=== PATIENT | male | born 1945 | race American Indian/Alaskan Native ===

== ENCOUNTER 2016-04-17 12:28 | Emergency (ER) | payer MEDICARE ==
[2016-04-17 13:29] VITALS: BP 134/92
[2016-04-17] MEDS ORDERED: NORCO 5/325 PO ONE (18:17)
--- NOTE | 2016-04-17 20:24 | Emergency Department Report ---
ED Lower Extremity HPI - General Chief Complaint: Extremity Injury, Lower Stated Complaint: LT FOOT SWOLLEN Time Seen by Provider: 04/17/16 18:10 Source: patient Mode of arrival: Wheelchair Limitations: No Limitations - History of Present Illness Initial Comments: 70-year-old male past medical history diabetes hypertension presents with complaint of left hip pain left knee pain left thigh pain status post mechanical fall, slipped on ice approximately 3 days ago. States he has had significant difficulty walking and ambulating since the fall. Patient has been helped by his to walk around at home and claims that he was using a chair to stabilize himself over the last 3 days. On initial clinical exam patient awake alert and oriented 3 denies any lacerations denies any head or neck trauma states that he fell onto left hip slipping on ice outside of his home on street. Brought in by wheelchair. Complaint: hip injury, knee injury, leg injury Injury: Hip: Left, Pelvis: Left, Knee: Left Type of Injury: other Severity: moderate Severity scale (0 -10): 6 Improves With: NSAID Worsens With: weight bearing Context: fall (fell onto left knee outside his house on icy street) Associated Symptoms: snap/pop sensation, swelling, able to partially bear weight Treatments Prior to Arrival: cold therapy, NSAIDS - Related Data Home Medications Medication Instructions Recorded Confirmed Last Taken Metformin HCl [Fortamet ER] 1,000 mg PO BID 10/27/13 10/27/13 Unknown amLODIPine [Norvasc] 5 mg PO DAILY 10/27/13 10/27/13 Unknown Previous Rx's Medication Instructions Recorded Last Taken Type HYDROcodone/APAP 10-325 [[place] 1 each PO Q6HR PRN #30 tablet 10/28/13 Unknown Rx 10/325] HYDROcodone/APAP 5-325 [[place] 1 each PO Q8H PRN #15 tablet 04/17/16 Unknown Rx 5/325] Allergies Allergy/AdvReac Type Severity Reaction Status Date / Time No Known Allergies Allergy Unverified 10/27/13 22:23 ED Review of Systems ROS: Stated complaint: LT FOOT SWOLLEN Other details as noted in HPI ED Past Medical Hx - Past Medical History Previous Medical History?: Yes Hx Hypertension: Yes Hx Diabetes: Yes - Surgical History Past Surgical History?: Yes Additional Surgical History: neck and left knee surgery - Social History Smoking Status: Never Smoker Substance Use Type: Alcohol - Medications Home Medications: Home Medications Medication Instructions Recorded Confirmed Last Taken Type Metformin HCl [Fortamet ER] 1,000 mg PO BID 10/27/13 10/27/13 Unknown History amLODIPine [Norvasc] 5 mg PO DAILY 10/27/13 10/27/13 Unknown History HYDROcodone/APAP 10-325 [[place] 1 each PO Q6HR PRN #30 tablet 10/28/13 Unknown Rx 10/325] HYDROcodone/APAP 5-325 [[place] 1 each PO Q8H PRN #15 tablet 04/17/16 Unknown Rx 5/325] ED Physical Exam - General Limitations: No Limitations General appearance: alert, in no apparent distress - Head Head exam: Present: atraumatic, normocephalic - Eye Eye exam: Present: normal appearance, PERRL, EOMI - ENT ENT exam: Present: mucous membranes moist - Neck Neck exam: Present: normal inspection - Respiratory Respiratory exam: Present: normal lung sounds bilaterally. Absent: respiratory distress - Cardiovascular Cardiovascular Exam: Present: regular rate, normal rhythm. Absent: systolic murmur, diastolic murmur, rubs, gallop - GI/Abdominal GI/Abdominal exam: Present: soft, normal bowel sounds - Rectal Rectal exam: Present: deferred - Extremities Exam Extremities exam: Present: normal inspection, tenderness, other (distal dorsalis pedis posterior tibial pulses fully intact) - Expanded Lower Extremity Exam Left Hip exam: Present: normal inspection, full ROM Upper Leg exam: Present: normal inspection, full ROM Knee exam: Present: normal inspection, tenderness (and has pain on palpation lateral aspect knee, no lacerations, posterior and anterior drawer test negative , various tests positive, minor pain on valgus test), swelling Lower Leg exam: Present: normal inspection, full ROM, tenderness (pain lateral to the tibial tuberosity) Ankle exam: Present: normal inspection, full ROM Foot/Toe exam: Present: normal inspection, full ROM Neuro vascular tendon exam: Present: no vascular compromise Gait: Positive: observed and limited by pain (antalgic gait, pain in left knee) - Back Exam Back exam: Present: normal inspection - Neurological Exam Neurological exam: Present: alert, oriented X3, CN II-XII intact, normal gait - Psychiatric Psychiatric exam: Present: normal affect, normal mood - Skin Skin exam: Present: warm, dry, intact, normal color. Absent: rash ED Course Vital Signs 04/17/16 04/17/16 13:27 18:27 Temperature 98.1 F Pulse Rate 108 H Respiratory 16 20 Rate Blood Pressure 134/92 O2 Sat by Pulse 97 Oximetry ED Lower Extremity MDM - Medical Decision Making A/P: Tibial plateau fracture left knee, hip sprain, osteoarthritis, mechanical fall 1-I discussed with Dr. Aguilar 2-I discussed case with Dr. Rodriguez from orthopedic surgery, states that as tibial plateau fracture is nondisplaced treatment and management is knee immobilizer nonweightbearing or weight-bearing as tolerated, no acute surgical intervention. States he will see patient this in his office I will give referral 3-[place] for pain when necessary, RICE therapy left knee/leg. Pt placed in knee immobilizer. I advised patient to rest his left knee and only walk at home minimally. I also advised him to not stay sedentary all the time he should get up periodically throughout the day and walk around with his walker as tolerated. I provided patient with an orthopedic walker. 4-I advised patient that it is imperative to follow-up with orthopedics this week as he has nondisplaced tibial plateau fracture and if he does not and may result in permanent impairment or disability due to fracture in his left knee Critical care attestation.: If time is entered above; I have spent that time in minutes in the direct care of this critically ill patient, excluding procedure time. 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 Jain orthopedic surgery I spoke to Dr. Jain regarding his case, Prescriptions: HYDROcodone/APAP 5-325 [[place] 5/325] 1 each PO Q8H PRN #15 tablet PRN Reason: Pain Referrals: PRIMARY CARE, [Primary Care Provider] - 3-5 Days CHARLY JAIN MD [Staff Physician] - 3-5 Days TESSIE SPRINGER MD [Staff Physician] - 3-5 Days Forms: Work/School Release Form(ED), Accompanied Note Time of Disposition: 22:01
--- NOTE | 2016-04-17 20:51 | XRay Report ---
FINAL REPORT EXAM: XR KNEE 3V LT HISTORY: LEFT KNEE PAIN TECHNIQUE: Left knee three views PRIORS: None. FINDINGS: There is marked tricompartmental joint space narrowing with prominent marginal osteophytes. On AP view there is a vertical linear opacity mid to medial aspect of the tibial plateau. On lateral view there is linear opacity seen posterior through the tibial plateau which extends to the articular surface. No evidence for joint effusion noted is a mixed sclerotic bony density within the distal femur likely reflecting old bone infarct or enchondroma. IMPRESSION: Findings are most consistent with a nondisplaced tibial plateau fracture. Severe tricompartmental degenerative changes Sclerotic opacity within the distal femur most likely reflecting old bone infarct or enchondroma.
--- NOTE | 2016-04-17 20:52 | XRay Report ---
FINAL REPORT EXAM: XR TIBIA FIBULA 2V LT HISTORY: pain s/p fall ? fracture TECHNIQUE: Three views of the left knee PRIORS: None. FINDINGS: Again noted is linear opacity within the tibial plateau suspicious for nondisplaced fracture Marked degenerative change noted at the knee. No distal tibia or fibular fracture is identified. IMPRESSION: Findings are suspicious for nondisplaced fracture of the tibial plateau Marked degenerative change of the knee No additional acute findings
--- NOTE | 2016-04-17 20:54 | XRay Report ---
FINAL REPORT EXAM: XR HIP 2-3V LT HISTORY: s/p fall ? fracture TECHNIQUE: Left hip and AP pelvis PRIORS: None. FINDINGS: No fracture identified. No dislocation seen. Femoral head maintains a normal contour. Joint spaces within normal limits. Adjacent bony pelvis is unremarkable IMPRESSION: Negative hip series
--- NOTE | 2016-04-17 20:55 | XRay Report ---
FINAL REPORT EXAM: XR FEMUR 2 LT HISTORY: s/p fall ? fracture TECHNIQUE: Left knee three views PRIORS: Correlated with today's multiple additional exams FINDINGS: Findings most consistent with a nondisplaced fracture posterior aspect of the tibial plateau further described on today's knee series. Marked degenerative changes at the knee noted along with old bone infarct versus enchondroma. No additional acute findings. IMPRESSION: No findings size suspicious for nondisplaced fracture of the posterior tibial plateau. Marked degenerative changes of the knee No additional acute findings
== END 2016-04-17 22:05 | disposition home or self-care (01) ==
LOC: ED 12:28
DX: S82.142A Displaced bicondylar fracture of left tibia, initial encounter for closed fracture (principal); S73.102A Unspecified sprain of left hip, initial encounter; M15.3 Secondary multiple arthritis; I10 Essential (primary) hypertension; E11.9 Type 2 diabetes mellitus without complications; W19.XXXA Unspecified fall, initial encounter; Y93.89 Activity, other specified; Y99.8 Other external cause status; Y92.89 Other specified places as the place of occurrence of the external cause

== ENCOUNTER 2018-05-21 05:54 | Day surgery (SDC) | payer MEDICARE, OTHER ==
[2018-05-21] MEDS ORDERED: WATER FOR IRRIG STERILE ONE (07:43)
[2018-05-21] MEDS ORDERED: WATER FOR IRRIG STERILE IR ONE (07:43)
--- NOTE | 2018-05-21 07:51 | Anesthesia Consultation ---
Anesthesia Consult and Med Hx Date of service: 05/21/18 - Airway Anesthetic Teeth Evaluation: Poor (missing upper and lower teeth) ROM Head & Neck: Adequate Mental/Hyoid Distance: Adequate Mallampati Class: Class I Intubation Access Assessment: Good - Pre-Operative Health Status ASA Pre-Surgery Classification: ASA2 Proposed Anesthetic Plan: MAC - Pulmonary Hx Smoking: Yes (STOPPED 2006 , 1 PACK PER WEEK) Hx Sleep Apnea: No (JEAN PRE SCREEN HIGH RISK) - Cardiovascular System Hx Hypertension: Yes Hx Coronary Artery Disease: Yes (cholesterol) - Central Nervous System Hx Neuromuscular Disorder: Yes (has had ACF and some sort of knee surgery) Hx Psychiatric Problems: No - Endocrine Hx Renal Disease: No (hx BPH) Hx Non-Insulin Dependent Diabetes: Yes ( takes metformin and glipizide) - Other Systems Hx Cancer: No
--- NOTE | 2018-05-21 07:51 | Anesthesia Day of Surgery ---
Anesthesia Day of Surgery - Day of Surgery Patient Examined: Yes Patient H&P Reviewed: Yes Patient is NPO: Yes
[2018-05-21] MEDS ORDERED: NACL 0.9% 1000 ML 1,000 ML IV SCH (08:00)
[2018-05-21] MEDS ORDERED: DIPRIVAN 10 MG/ML IV ONE ×4 (08:04→09:33)
[2018-05-21] MEDS ORDERED: XYLOCAINE 2% INFILTRATI ONE (08:04)
--- NOTE | 2018-05-21 08:06 | Short Stay Summary ---
Short Stay Documentation Date of service: 05/21/18 Narrative H&P: Presents for screening colonoscopy. - History Past Medical History: diabetes, hypertension - Allergies and Medications Current Medications: Allergies No Known Allergies Allergy (Verified 05/31/16 15:35) Home Medications Medication Instructions Recorded Confirmed Last Taken Type Metformin HCl [Fortamet ER] 1,000 mg PO BID 10/27/13 05/21/18 05/20/18 History amLODIPine [Norvasc] 5 mg PO DAILY 10/27/13 05/21/18 05/20/18 History Lovastatin [Altoprev] 20 mg PO QHS 05/31/16 05/20/18 06/06/16 21:00 History glipiZIDE [Glucotrol] 10 mg PO BID 05/31/16 05/20/18 06/07/16 04:30 History Jardiance 1 tab PO DAILY 05/20/18 05/21/18 05/20/18 History Lisinopril 1 tab PO DAILY 05/20/18 05/21/18 05/20/18 History Metoprolol Tartrate 1 tab PO DAILY 05/20/18 05/21/18 05/20/18 History Active Medications Sodium Chloride (Nacl 0.9% 1000 Ml) 1,000 mls @ 50 mls/hr IV DIRECT NORMAN Last Admin: 05/21/18 07:58 Dose: 50 mls/hr Documented by: - Physical exam General appearance: no acute distress HEENT: Atraumatic Lungs: Clear to auscultation Heart: Regular rate Gastrointestinal: normal Extremities: no ischemia Short Stay Discharge Plan Follow up with: TESSIE SPRINGER MD [Primary Care Provider] - 7 Days
[2018-05-21] MEDS ORDERED: NORMODYNE IV ONE (08:14)
[2018-05-21 10:16] VITALS: BP 174/102
--- NOTE | 2018-05-21 10:18 | Post Anesthesia Evaluation ---
- Post Anesthesia Evaluation Patient Participated: Yes (sleeping) Airway Patent: Yes Stable Respiratory Function: Yes Nausea/Vomiting: No Temp > 96.8F: Yes Pain Manageable: Yes Adequeate Hydration: Yes Anesthesia Complications: No Block Receding Appropriately: Not Applicable Patient on Ventilator: No
== END 2018-05-21 05:55 | disposition home or self-care (01) ==
LOC: GIO 05:54
PROVIDERS: ATTEND Internal Medicine Gastroenterology
DX: Z12.11 Encounter for screening for malignant neoplasm of colon (principal); D12.3 Benign neoplasm of transverse colon; D3A.8 Other benign neuroendocrine tumors; D12.4 Benign neoplasm of descending colon; D12.7 Benign neoplasm of rectosigmoid junction; K57.30 Diverticulosis of large intestine without perforation or abscess without bleeding; K64.8 Other hemorrhoids; I10 Essential (primary) hypertension; E11.9 Type 2 diabetes mellitus without complications; E78.5 Hyperlipidemia, unspecified; M17.12 Unilateral primary osteoarthritis, left knee; I25.10 Atherosclerotic heart disease of native coronary artery without angina pectoris; E78.00 Pure hypercholesterolemia, unspecified; Z79.01 Long term (current) use of anticoagulants; Z79.899 Other long term (current) drug therapy; Z79.84 Long term (current) use of oral hypoglycemic drugs; Z87.891 Personal history of nicotine dependence; Z96.659 Presence of unspecified artificial knee joint
CPT/HCPCS: 45380; 45381; 45385; 82962; 88305; 88342; J2704; J7030; 88341

== ENCOUNTER 2019-04-11 20:06 | Emergency (ER) | payer MEDICARE ==
[2019-04-11 20:55] VITALS: BP 148/99
--- NOTE | 2019-04-11 20:58 | Event Note ---
ED Screening Note Date of service: 04/11/19 Time: 20:57 ED Screening Note: 73 y o male preseents with table saw injury to right pinky tet; not up to date This initial assessment/diagnostic orders/clinical plan/treatment(s) is/are subject to change based on patients health status, clinical progression and re- assessment by fellow clinical providers in the ED. Further treatment and workup at subsequent clinical providers discretion. Patient/guardian urged not to elope from the ED as their condition may be serious if not clinically assessed and managed. Initial orders include: xray finger tet booster acc eval
--- NOTE | 2019-04-11 21:38 | XRay Report ---
RIGHT FINGER(S) 3 VIEW(S) INDICATION / CLINICAL INFORMATION: pain/injury COMPARISON: None available. FINDINGS: Acute, open, comminuted fracture of the distal phalanx of the small finger with associated deep soft tissue laceration and embedded gas. There are small bone fragments but no embedded metallic foreign b tigre. Overlying bandage material is noted. There is mild soft tissue swelling at the distal end of the finger. 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 No significant arthritis. Signer Name: Jaylon Shannon MD Signed: 04/11/2019 9:33 PM Workstation Name: [id number]
[2019-04-12] MEDS ORDERED: ceFAZolin 1 GM VIAL IM ONE (01:12)
[2019-04-12] MEDS ORDERED: ONDANSETRON 4 MG ODT TAB PO ONE (01:12)
[2019-04-12] MEDS ORDERED: TETANUS,DIPH,PERTUSS(ACELL) VACCINE 0.5 ML SYRINGE IM ONE (01:12)
[2019-04-12] MEDS ORDERED: HYDROcodone/ACETAMINOPHEN 7.5-325MG TAB PO ONE (01:12)
[2019-04-12] MEDS ORDERED: LIDOCAINE-MPF (1%) 10 MG/1 ML VIAL 5 ML INFILTRATI ONE (01:13)
[2019-04-12] MEDS ORDERED: LET TOPICAL (LIDOCAINE/EPINEPHRINE/TETRACAINE) 3 ML TP ONE (02:12)
[2019-04-12] MEDS ORDERED: NEOMY 3.5 MG/BACIT 400 UNITS/POLY B 5000 UNITS/GM OINT PACKET TP ONE (03:05)
--- NOTE | 2019-04-12 03:31 | Emergency Department Report ---
ED Upper Extremity Inj HPI - General Chief Complaint: Wound/Laceration Stated Complaint: RIGHT HAND LACERATION Source: patient Mode of arrival: Ambulatory Limitations: No Limitations - History of Present Illness Initial Comments: Patient is a 73-year-old -[place] male with a history of hypertension, [id number] diabetes who presents to the ED with painful bleeding D cell right small finger laceration after a chain-saw the distal part of his right small finger for 4 hours ago while walking with the chainsaw at home. Patient states that the pain has worsened in the last 2 hours and that the bleeding has not been well controlled. Patient also states that he is not up-to-date with his tetanus vaccinations. Patient denies numbness or tingling or weakness of the right index small finger. MD Complaint: Injury to:: right, finger (small finger injury and laceration) -: Sudden, hour(s) (4) Other Extremity Injury: Hand: Right (distal right small finger laceration) Handedness: right Place: home Severity scale (0 -10): 7 Improves With: none Worsens With: movement of extremity Context: laceration (distal right small finger laceration) Associated Symptoms: denies other symptoms. denies: weakness, numbness, neck pain, suspects foreign body, nausea/vomiting, heard/felt popping sensat - Related Data Home Medications Medication Instructions Recorded Confirmed Last Taken Metformin HCl [Fortamet ER] 1,000 mg PO BID 10/27/13 05/21/18 05/20/18 amLODIPine [Norvasc] 5 mg PO DAILY 10/27/13 05/21/18 05/20/18 Lovastatin [Altoprev] 20 mg PO QHS 05/31/16 05/20/18 06/06/16 21:00 glipiZIDE [Glucotrol] 10 mg PO BID 05/31/16 05/20/18 06/07/16 04:30 Jardiance 1 tab PO DAILY 05/20/18 05/21/18 05/20/18 Lisinopril 1 tab PO DAILY 05/20/18 05/21/18 05/20/18 Metoprolol Tartrate 1 tab PO DAILY 05/20/18 05/21/18 05/20/18 Previous Rx's Medication Instructions Recorded Last Taken Type HYDROcodone/APAP 5-325 [[place] 1 each PO Q6HR PRN #12 tablet 04/12/19 Unknown Rx 5/325] Ibuprofen [Motrin] 800 mg PO Q8HR PRN #24 tablet 04/12/19 Unknown Rx cephALEXin [Keflex] 500 mg PO Q6HR #40 capsule 04/12/19 Unknown Rx Allergies Allergy/AdvReac Type Severity Reaction Status Date / Time No Known Allergies Allergy Verified 05/31/16 15:35 ED Review of Systems ROS: Stated complaint: RIGHT HAND LACERATION Other details as noted in HPI Constitutional: denies: chills, fever Eyes: denies: eye pain, eye discharge, vision change ENT: denies: ear pain, throat pain Respiratory: denies: cough, shortness of breath, wheezing Cardiovascular: denies: chest pain, palpitations Endocrine: no symptoms reported Gastrointestinal: denies: abdominal pain, nausea, vomiting, diarrhea Genitourinary: denies: urgency, dysuria Musculoskeletal: arthralgia (distal right small finger laceration). denies: back pain, joint swelling Skin: other (distal right small finger laceration). denies: rash, lesions Neurological: denies: headache, weakness, paresthesias Psychiatric: denies: anxiety, depression Hematological/Lymphatic: denies: easy bleeding, easy bruising ED Past Medical Hx - Past Medical History Previous Medical History?: Yes Hx Hypertension: Yes Hx Diabetes: Yes Hx Renal Disease: No (hx BPH) Hx HIV: No Additional medical history: BPH - Surgical History Past Surgical History?: Yes Additional Surgical History: neck and left knee surgery - Social History Smoking Status: Never Smoker Substance Use Type: None - Medications Home Medications: Home Medications Medication Instructions Recorded Confirmed Last Taken Type Metformin HCl [Fortamet ER] 1,000 mg PO BID 10/27/13 05/21/18 05/20/18 History amLODIPine [Norvasc] 5 mg PO DAILY 10/27/13 05/21/18 05/20/18 History Lovastatin [Altoprev] 20 mg PO QHS 05/31/16 05/20/18 06/06/16 21:00 History glipiZIDE [Glucotrol] 10 mg PO BID 05/31/16 05/20/18 06/07/16 04:30 History Jardiance 1 tab PO DAILY 05/20/18 05/21/18 05/20/18 History Lisinopril 1 tab PO DAILY 05/20/18 05/21/18 05/20/18 History Metoprolol Tartrate 1 tab PO DAILY 05/20/18 05/21/18 05/20/18 History HYDROcodone/APAP 5-325 [[place] 1 each PO Q6HR PRN #12 tablet 04/12/19 Unknown Rx 5/325] Ibuprofen [Motrin] 800 mg PO Q8HR PRN #24 tablet 04/12/19 Unknown Rx cephALEXin [Keflex] 500 mg PO Q6HR #40 capsule 04/12/19 Unknown Rx ED Physical Exam - General Limitations: No Limitations General appearance: alert, in no apparent distress - Head Head exam: Present: atraumatic, normocephalic, normal inspection - Eye Eye exam: Present: normal appearance, PERRL, EOMI Pupils: Present: normal accommodation - ENT ENT exam: Present: normal exam, normal orophraynx, mucous membranes moist, TM's normal bilaterally, normal external ear exam - Neck Neck exam: Present: normal inspection, full ROM. Absent: tenderness - Respiratory Respiratory exam: Present: normal lung sounds bilaterally. Absent: respiratory distress, wheezes, rhonchi, chest wall tenderness, accessory muscle use, decreased breath sounds - Cardiovascular Cardiovascular Exam: Present: regular rate, normal rhythm, normal heart sounds. Absent: systolic murmur, diastolic murmur, rubs, gallop - GI/Abdominal GI/Abdominal exam: Present: soft, normal bowel sounds. Absent: distended, tenderness, rebound - Extremities Exam Extremities exam: Present: normal inspection, full ROM, tenderness (palpable tenderness of distal right small finger due to a bleeding laceration), normal capillary refill. Absent: pedal edema, joint swelling, calf tenderness - Back Exam Back exam: Present: normal inspection, full ROM. Absent: tenderness, muscle spasm, paraspinal tenderness - Neurological Exam Neurological exam: Present: alert, oriented X3, CN II-XII intact, normal gait, reflexes normal - Psychiatric Psychiatric exam: Present: normal affect, normal mood - Skin Skin exam: Present: warm, dry, intact, normal color, other (bleeding 4 cm laceration of distal dorsal right small finger) ED Course Vital Signs 04/11/19 04/12/19 20:50 01:36 Temperature 97.9 F Pulse Rate 83 Respiratory 20 18 Rate Blood Pressure 148/99 O2 Sat by Pulse 93 Oximetry - Laceration /Wound Repair Right Distal Finger Wound Location: upper extremity (distal dorsal right small finger laceration) Wound Length (cm): 4 Wound's Depth, Shape: into muscle, nail-avulsed, contused tissue Wound Explored: contaminated Irrigated w/ Saline (ccs): 100 Betadine Prep?: Yes Anesthesia: 1% Lidocaine Volume Anesthetic (ccs): 5 Wound Debrided: extensive Wound Repaired With: sutures Suture Size/Type: 3:0, proline Number of Sutures: 9 Layer Closure?: No Sterile Dressing Applied?: Yes Progress: Patient tolerated the procedure with and was discharged home on pain medications and oral antibiotics after receiving Ancef 1 g intramuscular injection and the wound also lead with Neosporin ointment. Patient was referred to the orthopedic surgeon Dr. Beatty for further evaluation the next day. Patient was advised to contact Dr. Beatty's office first thing in the morning to schedule a follow-up appointment. Patient was advised to return to the ED immediately if symptoms get worse. ED Medical Decision Making - Radiology Data Radiology results: report reviewed, image reviewed Findings [address] [address] XRay Report Signed Patient: ION ARZATE MR#: [id number] 8 : 1945 Acct:[id number] Age/Sex: 73 / M ADM Date: 04/11/19 Loc: ED Attending Dr: Ordering Physician: ALBERT BERNARD Date of Service: 04/11/19 Procedure(s): XR finger(s) 2+V RT Accession Number(s): [id number] cc: ALBERT BERNARD Fluoro Time In Minutes: RIGHT FINGER(S) 3 VIEW(S) INDICATION / CLINICAL INFORMATION: pain/injury COMPARISON: None available. FINDINGS: Acute, open, comminuted fracture of the distal phalanx of the small finger with associated deep soft tissue laceration and embedded gas. There are small bone fragments but no embedded metallic foreign body. Overlying bandage material is noted. There is mild soft tissue swelling at the distal end of the finger. 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 No significant arthritis. Signer Name: Jaylon Shannon MD Signed: 04/11/2019 9:33 PM Workstation Name: [id number] Transcribed By: DMB Dictated By: Jaylon Shannon MD Electronically Authenticated By: Jaylon Shannon MD Signed Date/Time: 04/11/192132 DD/ 29 TD/TT: - Medical Decision Making This is a 73-year-old male presented to the ED with painful bleeding distal right small finger laceration after a chain saw accidentally cut his distal right small finger when working with it. In the ED, patient is alert and oriented 3 and is not in distress. Patient was treated in the ED for pain, also given oral antibiotics in the ED. Patient also received tetanus booster vaccination and Ancef 1 g intramuscular injection. The right hand x-ray shows acute, open, comminuted fracture of the distal phalanx of the small finger with associated deep soft tissue laceration and embedded gas. There are small bone fragments but no embedded metallic foreign body. Overlying bandage material is noted. There is mild soft tissue swelling at the distal end of the finger. 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 No significant arthritis. The wound was thoroughly cleaned with normal saline and Betadine. The laceration was approximated as much as possible per protocol and the patient tolerated the procedure well. Patient was discharged home on oral antibiotics, pain medications and was also referred to the orthopedic surgeon Dr. Beatty for follow-up. Patient was advised to contact Dr. Beatty's office first thing in the morning the next day to schedule a follow-up appointment. Patient was otherwise advised to return to the ED immediately if symptoms get worse. - Differential Diagnosis finger fracture; Laceration; finger sprain Critical care attestation.: If time is entered above; I have spent that time in minutes in the direct care of this critically ill patient, excluding procedure time. ED Disposition Clinical Impression: Open fracture of distal phalanx of finger of right hand Qualifiers: Encounter type: initial encounter Finger: little finger Fracture alignment: displaced Qualified Code(s): S62.636B - Displaced fracture of distal phalanx of right little finger, initial encounter for open fracture Laceration of right little finger with damage to nail Qualifiers: Encounter type: initial encounter Foreign body presence: without foreign body Qualified Code(s): S61.316A - Laceration without foreign body of right little finger with damage to nail, initial encounter Disposition: TO HOME OR SELFCARE Is pt being admited?: No Does the pt Need Aspirin: No Condition: Stable Instructions: Finger Fracture (ED), Finger Laceration (ED) Additional Instructions: Take medications with food, drink plenty of fluids and follow-up with the orthopedic surgeon Dr. Beatty the next day for further evaluation. Contact Dr. Beatty's office first thing in the morning on 04/14/2019 schedule a follow-up appointment with Dr. Beatty. Return to the ED immediately if symptoms get worse. Prescriptions: cephALEXin [Keflex] 500 mg PO Q6HR #40 capsule Ibuprofen [Motrin] 800 mg PO Q8HR PRN #24 tablet PRN Reason: Pain , Severe (7-10) HYDROcodone/APAP 5-325 [[place] 5/325] 1 each PO Q6HR PRN #12 tablet PRN Reason: Pain Referrals: TESSIE SPRINGER MD [Primary Care Provider] - 3-5 Days Time of Disposition: 03:40 Print Language: THAI
== END 2019-04-12 03:54 | disposition home or self-care (01) ==
LOC: ED 20:06
DX: S61.216A Laceration without foreign body of right little finger without damage to nail, initial encounter (principal); I10 Essential (primary) hypertension; E11.9 Type 2 diabetes mellitus without complications; N40.0 Benign prostatic hyperplasia without lower urinary tract symptoms; Z98.890 Other specified postprocedural states; Z79.899 Other long term (current) drug therapy; W29.3XXA Contact with powered garden and outdoor hand tools and machinery, initial encounter; Y93.89 Activity, other specified; Y92.89 Other specified places as the place of occurrence of the external cause; Y99.8 Other external cause status
CPT/HCPCS: 12042; 73140; 90471; 90715; 96372; 99283; J0690; A6250; Q0162

== ENCOUNTER 2019-08-06 11:52 | Emergency (ER) | payer MEDICARE ==
--- NOTE | 2019-08-06 13:30 | Cat Scan Report ---
CT head/brain wo con INDICATION / CLINICAL INFORMATION: 73 years Male; headache. TECHNIQUE: Routine CT head without contrast. All CT scans at this location are performed using CT dos e reduction for ALARA by means of automated exposure control. COMPARISON: None. FINDINGS: BRAIN / INTRACRANIAL CONTENTS: There is moderate to cerebral white matter disease most notably involv ing the periventricular regions and most consistent with microvascular angiopathy at. There is mild c erebral atrophy. The ventricular system is correspondingly appropriate in size and configuration. The re is no CT evidence of acute intracranial hemorrhage or significant mass effect. ORBITS: No significant abnormality of visualized orbits. SINUSES / MASTOIDS: No significant abnormality the visualized paranasal sinuses or mastoid air cells. CRANIOCERVICAL JUNCTION: There is posterior fusion involving the visualized occiput and C1-2 levels a t. ADDITIONAL FINDINGS: None. IMPRESSION: 1. There is moderate microvascular angiopathy without CT evidence of acute intracranial hemorrhage. Signer Name: Jose Sanchez MD Signed: 08/06/2019 1:26 PM Workstation Name: [id number]
--- NOTE | 2019-08-06 13:40 | Emergency Department Report ---
ED General Adult HPI - General Chief complaint: High BP Stated complaint: DIZZY/HBP Time Seen by Provider: 08/06/19 13:24 Source: patient Mode of arrival: Ambulatory Limitations: No Limitations - History of Present Illness Initial comments: 73-year-old male with a past medical history diabetes, hypertension, colon cancer status post surgical resection and chemotherapy presents to the hospital complains of elevated blood pressure. Patient went to a follow-up visit with his oncologist today and his BP was noted to be high. Patient took his amlodipine 5 mg, lisinopril 10 mg, metoprolol 50 mg about 7:15 AM as scheduled. Patient complains of a slight 5/10 bitemporal headache that started when he left oncologist office. His oncologist advised that he go to his primary care doctor's office and ER if he is unable to see his PCP. Pt's pmd office is apparently closed on Mondays and Sun. Patient's typical blood pressure in the office is 150s/90s as per oncologist note. Patient denies blurry vision, nausea, vomiting, chest pain, shortness of breath, focal weakness, or focal numbness. PMD Dr Springer Severity scale (0 -10): 5 - Related Data Home Medications Medication Instructions Recorded Confirmed Last Taken Metformin HCl [Fortamet ER] 1,000 mg PO BID 10/27/13 05/21/18 05/20/18 amLODIPine [Norvasc] 5 mg PO DAILY 10/27/13 05/21/18 05/20/18 Lovastatin [Altoprev] 20 mg PO QHS 05/31/16 05/20/18 06/06/16 21:00 glipiZIDE [Glucotrol] 10 mg PO BID 05/31/16 05/20/18 06/07/16 04:30 Jardiance 1 tab PO DAILY 05/20/18 05/21/18 05/20/18 Lisinopril 1 tab PO DAILY 05/20/18 05/21/18 05/20/18 Metoprolol Tartrate 1 tab PO DAILY 05/20/18 05/21/18 05/20/18 Previous Rx's Medication Instructions Recorded Last Taken Type HYDROcodone/APAP 5-325 [[place] 1 each PO Q6HR PRN #12 tablet 04/12/19 Unknown Rx 5/325] Ibuprofen [Motrin] 800 mg PO Q8HR PRN #24 tablet 04/12/19 Unknown Rx cephALEXin [Keflex] 500 mg PO Q6HR #40 capsule 04/12/19 Unknown Rx Allergies Allergy/AdvReac Type Severity Reaction Status Date / Time No Known Allergies Allergy Verified 05/31/16 15:35 ED Review of Systems ROS: Stated complaint: DIZZY/HBP Other details as noted in HPI Comment: All other systems reviewed and negative ED Past Medical Hx - Past Medical History Previous Medical History?: Yes Hx Hypertension: Yes Hx Diabetes: Yes Hx Renal Disease: No (hx BPH) Hx HIV: No Additional medical history: BPH, colon cancer hx - Surgical History Past Surgical History?: Yes Additional Surgical History: neck and left knee surgery - Social History Smoking Status: Never Smoker Substance Use Type: None - Medications Home Medications: Home Medications Medication Instructions Recorded Confirmed Last Taken Type Metformin HCl [Fortamet ER] 1,000 mg PO BID 10/27/13 05/21/18 05/20/18 History amLODIPine [Norvasc] 5 mg PO DAILY 10/27/13 05/21/18 05/20/18 History Lovastatin [Altoprev] 20 mg PO QHS 05/31/16 05/20/18 06/06/16 21:00 History glipiZIDE [Glucotrol] 10 mg PO BID 05/31/16 05/20/18 06/07/16 04:30 History Jardiance 1 tab PO DAILY 05/20/18 05/21/18 05/20/18 History Lisinopril 1 tab PO DAILY 05/20/18 05/21/18 05/20/18 History Metoprolol Tartrate 1 tab PO DAILY 05/20/18 05/21/18 05/20/18 History HYDROcodone/APAP 5-325 [[place] 1 each PO Q6HR PRN #12 tablet 04/12/19 Unknown Rx 5/325] Ibuprofen [Motrin] 800 mg PO Q8HR PRN #24 tablet 04/12/19 Unknown Rx cephALEXin [Keflex] 500 mg PO Q6HR #40 capsule 04/12/19 Unknown Rx ED Physical Exam - General Limitations: No Limitations - Other Other exam information: General: No acute distress Head: Atraumatic Eyes: normal appearance ENT: Moist mucous membranes Neck: Normal appearance, no midline tenderness Chest: Clear to auscultation bilaterally CV: Regular rate and rhythm Abdomen: Soft, normal bowel sounds, nontender, nondistended, no rebound or guarding Back: Normal inspection Extremity: Normal inspection, full range of motion Neuro: Alert O x 3, no facial asymmetry, speech clear, no gross motor sensory deficit Psych: Appropriate behavior Skin: No rash ED Course Vital Signs 08/06/19 08/06/19 08/06/19 11:55 13:26 13:33 Temperature 97.9 F Pulse Rate 96 H 79 Respiratory 16 14 Rate Blood Pressure 190/119 Blood Pressure 173/106 [Left] O2 Sat by Pulse 97 98 100 Oximetry 08/06/19 08/06/19 08/06/19 13:36 13:46 14:00 Temperature Pulse Rate 87 84 72 Respiratory 16 15 26 H Rate Blood Pressure 173/106 173/106 173/106 Blood Pressure [Left] O2 Sat by Pulse 99 96 96 Oximetry 08/06/19 08/06/19 08/06/19 14:16 14:30 14:49 Temperature Pulse Rate 65 75 81 Respiratory 15 18 20 Rate Blood Pressure 173/106 173/106 Blood Pressure 160/99 [Left] O2 Sat by Pulse 96 97 98 Oximetry ED Medical Decision Making - Lab Data Result diagrams: 08/06/19 13:39 08/06/19 13:39 Lab Results 08/06/19 08/06/19 08/06/19 Range/Units 13:39 13:39 13:39 WBC 2.8 L (4.5-11.0) K/mm3 RBC 4.85 (3.65-5.03) M/mm3 Hgb 14.1 (11.8-15.2) gm/dl Hct 43.8 (35.5-45.6) % MCV 90 (84-94) fl MCH 29 (28-32) pg MCHC 32 (32-34) % RDW 15.7 H (13.2-15.2) % Plt Count 159 (140-440) K/mm3 Lymph % (Auto) 30.6 (13.4-35.0) % [place] % (Auto) 12.7 H (0.0-7.3) % Eos % (Auto) 3.5 (0.0-4.3) % Baso % (Auto) 2.6 H (0.0-1.8) % Lymph # 0.8 L (1.2-5.4) K/mm3 [place] # 0.3 (0.0-0.8) K/mm3 Eos # 0.1 (0.0-0.4) K/mm3 Baso # 0.1 (0.0-0.1) K/mm3 Seg Neutrophils % 50.6 (40.0-70.0) % Seg Neutrophils # 1.4 L (1.8-7.7) K/mm3 PT 13.2 (12.2-14.9) Sec. INR 0.99 (0.87-1.13) APTT 28.1 (24.2-36.6) Sec. Sodium 139 (137-145) mmol/L Potassium 4.8 (3.6-5.0) mmol/L Chloride 102.2 (98-107) mmol/L Carbon Dioxide 21 L (22-30) mmol/L Anion Gap 21 mmol/L BUN 16 (9-20) mg/dL Creatinine 1.0 (0.8-1.5) mg/dL Estimated GFR > 60 ml/min BUN/Creatinine Ratio 16 % Glucose 270 H (75-100) mg/dL Calcium 10.1 (8.4-10.2) mg/dL Total Bilirubin 0.60 (0.1-1.2) mg/dL Direct Bilirubin < 0.2 (0-0.2) mg/dL Indirect Bilirubin 0.4 mg/dL AST 19 (5-40) units/L ALT 15 (7-56) units/L Alkaline Phosphatase 86 (35-129) units/L NT-Pro-B Natriuret Pep 90.83 (0-900) pg/mL Total Protein 8.0 (6.3-8.2) g/dL Albumin 4.6 (3.9-5) g/dL Albumin/Globulin Ratio 1.4 % - Radiology Data Radiology results: report reviewed CT head/brain wo con INDICATION / CLINICAL INFORMATION: 73 years Male; headache. TECHNIQUE: Routine CT head without contrast. All CT scans at this location are performed using CT dose reduction for ALARA by means of automated exposure control. COMPARISON: None. FINDINGS: BRAIN / INTRACRANIAL CONTENTS: There is moderate to cerebral white matter disease most notably involving the periventricular regions and most consistent with microvascular angiopathy at. There is mild cerebral atrophy. The ventricular system is correspondingly appropriate in size and configuration. There is no CT evidence of acute intracranial hemorrhage or significant mass effect. ORBITS: No significant abnormality of visualized orbits. SINUSES / MASTOIDS: No significant abnormality the visualized paranasal sinuses or mastoid air cells. CRANIOCERVICAL JUNCTION: There is posterior fusion involving the visualized occiput and C1-2 levels at. ADDITIONAL FINDINGS: None. IMPRESSION: 1. There is moderate microvascular angiopathy without CT evidence of acute intracranial hemorrhage. - Medical Decision Making bp improved during ed stay without additional meds pt feeling better ed work up labs and ct head unremarkable pt to be d/andrew to f/u with pmd - Differential Diagnosis Hypertensive emergency versus urgency Critical Care Time: No Critical care attestation.: If time is entered above; I have spent that time in minutes in the direct care of this critically ill patient, excluding procedure time. ED Disposition Clinical Impression: Uncontrolled hypertension, Colon cancer, Headache Disposition: DC- TO HOME OR SELFCARE Is pt being admited?: No Does the pt Need Aspirin: No Condition: Stable Instructions: Hypertension (ED), Acute Headache (ED) Additional Instructions: Continue your current medication as prescribed. Follow-up with your doctor. Return if symptoms worsen as indicated by your discharge instructions. Referrals: TESSIE SPRINGER MD [Staff Physician] - 2-3 Days Time of Disposition: 15:25
[2019-08-06 14:13] LABS: Basophils # (Auto) 0.1 K/mm3 (0.0-0.1); Basophils % (Auto) 2.6 % (0.0-1.8); Eosinophils # (Auto) 0.1 K/mm3 (0.0-0.4); Eosinophils % (Auto) 3.5 % (0.0-4.3); Hematocrit 43.8 % (35.5-45.6); Hemoglobin 14.1 gm/dl (11.8-15.2); Lymphocytes # (Auto) 0.8 K/mm3 (1.2-5.4); Lymphocytes % (Auto) 30.6 % (13.4-35.0); Mean Corpuscular HGB Conc 32 % (32-34); Mean Corpuscular Volume 90 fl (84-94); Monocytes # (Auto) 0.3 K/mm3 (0.0-0.8); Monocytes % (Auto) 12.7 % (0.0-7.3); Platelet Count 159 K/mm3 (140-440); Red Blood Count 4.85 M/mm3 (3.65-5.03); Red Cell Distribution Width 15.7 % (13.2-15.2)
[2019-08-06 14:21] LABS: INR 0.99 (0.87-1.13)
[2019-08-06 14:22] LABS: Partial Thromboplastin Time 28.1 Sec. (24.2-36.6)
[2019-08-06 14:50] VITALS: BP 160/99
[2019-08-06 14:55] LABS: Alanine Aminotransferase 15 units/L (7-56); Albumin 4.6 g/dL (3.9-5); BUN/Creatinine Ratio 16; Blood Urea Nitrogen 16 mg/dL (9-20); Calcium 10.1 mg/dL (8.4-10.2); Hemolysis Index 36
[2019-08-06 14:56] LABS: Bilirubin,Direct < 0.2 mg/dL (0-0.2)
== END 2019-08-06 15:29 | disposition home or self-care (01) ==
LOC: ED 11:52
DX: I10 Essential (primary) hypertension (principal); E11.9 Type 2 diabetes mellitus without complications; Z85.038 Personal history of other malignant neoplasm of large intestine; Z79.899 Other long term (current) drug therapy; Z98.890 Other specified postprocedural states
CPT/HCPCS: 36415; 70450; 80048; 80076; 83880; 85025; 85610; 85730

== ENCOUNTER 2021-05-04 21:11 | Emergency (ER) | payer MEDICARE ==
--- NOTE | 2021-05-04 21:27 | Emergency Department Report ---
HPI - General Chief Complaint: Neuro Symptoms/Deficit Time Seen by Provider: 05/04/21 21:23 - HPI HPI: Triage/room 1 The patient is a 75-year-old male present with a chief complaint of right facial weakness. Patient states sometime this afternoon between approximately 1500/1400 he states he noticed he was "talking out of the left side of my mouth." Patient complains of weakness to the right side of his face in addition to bilateral hands and bilateral thighs. Patient complains of numbness in bilateral hands. ED Past Medical Hx - Past Medical History Hx Hypertension: Yes Hx Diabetes: Yes Hx Renal Disease: No (hx BPH) Additional medical history: BPH, colon cancer hx - Surgical History Additional Surgical History: neck and left knee surgery - Family History Family history: no significant - Social History Smoking Status: Never Smoker Substance Use Type: None - Medications Home Medications: Home Medications Medication Instructions Recorded Confirmed Last Taken Type Metformin HCl [Fortamet ER] 1,000 mg PO BID 10/27/13 05/21/18 05/20/18 History amLODIPine [Norvasc] 5 mg PO DAILY 10/27/13 05/21/18 05/20/18 History Lovastatin [Altoprev] 20 mg PO QHS 05/31/16 05/20/18 06/06/16 21:00 History glipiZIDE [Glucotrol] 10 mg PO BID 05/31/16 05/20/18 06/07/16 04:30 History Jardiance 1 tab PO DAILY 05/20/18 05/21/18 05/20/18 History Lisinopril 1 tab PO DAILY 05/20/18 05/21/18 05/20/18 History Metoprolol Tartrate 1 tab PO DAILY 05/20/18 05/21/18 05/20/18 History HYDROcodone/APAP 5-325 [[place] 1 each PO Q6HR PRN #12 tablet 04/12/19 Unknown Rx 5/325] Ibuprofen [Motrin] 800 mg PO Q8HR PRN #24 tablet 04/12/19 Unknown Rx cephALEXin [Keflex] 500 mg PO Q6HR #40 capsule 04/12/19 Unknown Rx Dextran 70/Hypromellose 2 drop OD PRN #15 ml 05/04/21 Unknown Rx [Artificial Tears] predniSONE [Deltasone] 60 mg PO QDAY #21 tab 05/04/21 Unknown Rx ED Review of Systems ROS: Stated complaint: FACIAL/EYE DROOPING Other details as noted in HPI Constitutional: no symptoms reported Eyes: denies: eye pain ENT: denies: throat pain Respiratory: no symptoms reported Cardiovascular: chest pain Endocrine: no symptoms reported Gastrointestinal: denies: abdominal pain Genitourinary: denies: dysuria Musculoskeletal: denies: back pain Neurological: headache, weakness, numbness Physical Exam - Physical Exam Vital Signs: Vital Signs 05/04/21 05/04/21 05/04/21 22:39 22:45 22:48 Temperature 97.7 F Pulse Rate 91 H Respiratory 18 Rate Blood Pressure 138/90 138/90 Blood Pressure 160/100 [Right] O2 Sat by Pulse 93 96 95 Oximetry 05/04/21 22:51 Temperature Pulse Rate 80 Respiratory 18 Rate Blood Pressure Blood Pressure 148/95 [Right] O2 Sat by Pulse 95 Oximetry Physical Exam: GENERAL: The patient is well-developed well-nourished male sitting in wheelchair not appearing to be in acute distress. [] HEENT: Normocephalic. Atraumatic. Extraocular motions are intact. Patient has moist mucous membranes. NECK: Supple. Trachea midline CHEST/LUNGS: Clear to auscultation. There is no respiratory distress noted. HEART/CARDIOVASCULAR: Regular. There is no tachycardia. There is no gallop rub or murmur. ABDOMEN: Abdomen is soft, nontender. Patient has normal bowel sounds. There is no abdominal distention. SKIN: There is no rash. There is no edema. There is no diaphoresis. NEURO: The patient is awake, alert, and oriented. The patient is cooperative. There is right facial droop without forehead sparing, otherwise cranial nerves II through XII grossly intact. The patient has normal speech. GCS 15 MUSCULOSKELETAL: There is no evidence of acute injury. ED Course - Consultations Consultation #1: 05/04/21 Case discussed with neurologist- Meng's palsy ED Medical Decision Making - Lab Data Result diagrams: 05/04/21 21:25 05/04/21 21:25 Laboratory Tests 05/04/21 05/04/21 05/04/21 21:13 21:25 21:25 WBC 4.2 L RBC 5.86 H Hgb 15.6 H Hct 49.7 H MCV 85 MCH 27 L MCHC 32 RDW 15.3 H Plt Count 200 Lymph % (Auto) 27.5 [place] % (Auto) 9.0 H Eos % (Auto) 2.0 Baso % (Auto) 0.6 Lymph # (Auto) 1.2 [place] # (Auto) 0.4 Eos # (Auto) 0.1 Baso # (Auto) 0.0 Seg Neutrophils % 60.9 Seg Neutrophils # 2.6 PT 13.6 INR 0.94 APTT 30.6 Thrombin Time 17.4 VBG pH Sodium Potassium Chloride Carbon Dioxide Anion Gap BUN Creatinine Estimated GFR BUN/Creatinine Ratio Glucose POC Glucose 233 H Calcium Total Bilirubin AST ALT Alkaline Phosphatase Troponin T Total Protein Albumin Albumin/Globulin Ratio 05/04/21 05/04/21 21:25 21:31 WBC RBC Hgb Hct MCV MCH MCHC RDW Plt Count Lymph % (Auto) [place] % (Auto) Eos % (Auto) Baso % (Auto) Lymph # (Auto) [place] # (Auto) Eos # (Auto) Baso # (Auto) Seg Neutrophils % Seg Neutrophils # PT INR APTT Thrombin Time VBG pH 7.414 Sodium 138 Potassium 4.2 Chloride 103.0 Carbon Dioxide 20 L Anion Gap 19 BUN 10 Creatinine 0.8 Estimated GFR > 60 BUN/Creatinine Ratio 13 Glucose 271 H POC Glucose Calcium 9.8 Total Bilirubin 0.80 AST 28 ALT 32 Alkaline Phosphatase 98 Troponin T < 0.010 Total Protein 8.1 Albumin 4.6 Albumin/Globulin Ratio 1.3 - Radiology Data Radiology results: report reviewed (CT head), image reviewed (CT head) [facility] [address] [place] [address] Cat Scan Report Signed Patient: ION ARZATE MR#: [id number] 8 : 1945 Acct:[id number] Age/Sex: 75 / M ADM Date: 05/04/21 Loc: ED Attending Dr: Ordering Physician: JHON RAGLAND NP Date of Service: 05/04/21 Procedure(s): CT head/brain wo con Accession Number(s): [id number] cc: JHON RAGLAND NP CT HEAD WITHOUT CONTRAST INDICATION / CLINICAL INFORMATION: cva. TECHNIQUE: All CT scans at this location are performed using CT dose reduction for ALARA by means of automated exposure control. COMPARISON: Head CT 08/06/2019 FINDINGS: HEMORRHAGE: No evidence of intracranial hemorrhage or extra-axial fluid collection. EXTRA-AXIAL SPACES: Cortical sulci and sylvian fissures are mildly enlarged reflecting a degree of parenchymal volume loss which is within normal limits for the patient's age of 75 years. Basilar cisterns have an unremarkable appearance. VENTRICULAR SYSTEM: The third and lateral ventricles are enlarged reflecting presence of age related parenchymal volume loss. CEREBRAL PARENCHYMA: Periventricular and deep white matter lucency is observed. This is probably secondary to microvascular ischemic change. There is no indication of recent infarction. No areas of encephalomalacia are identified. MIDLINE SHIFT OR HERNIATION: There is no mass effect. CEREBELLUM / BRAINSTEM: Brainstem has an unremarkable appearance. Age related cerebellar atrophy is noted. MIDLINE STRUCTURES:Pituitary gland has an unremarkable appearance. No abnormalities are seen in the pineal region. INTRACRANIAL VESSELS:Calcified atherosclerotic plaque is present along the course of the cavernous segments of both internal carotid arteries. Similar findings are seen at the distal vertebral arteries. CRANIOCERVICAL JUNCTION: Patient is status post fusion from the posterior occiput down through C3. ORBITS: visualized portions of the orbits have an unremarkable appearance. SOFT TISSUES of HEAD: No significant abnormality. CALVARIUM: Evaluation of bone windows reveals no abnormalities. PARANASAL SINUSES / MASTOID AIR CELLS: Paranasal sinuses are free from inflam matory mucosal disease. Mastoid air cells are normally pneumatized. ADDITIONAL FINDINGS: None. IMPRESSION: 1. Age-related involutional changes of parenchymal volume loss and microvascular ischemia. 2. No acute intracranial abnormality. No significant interval change compared to prior study. 3. Status post posterior fusion at the craniocervical junction. Signer Name: Oumar Olvera MD Signed: 05/04/2021 9:37 PM Workstation Name: [id number] Transcribed By: Dictated By: Oumar Olvera MD Electronically Authenticated By: Oumar Olvera MD Signed Date/Time: 05/04/212136 DD/ 31 TD/TT: Print Cancel - Differential Diagnosis Meng's palsy, CVA Critical care attestation.: If time is entered above; I have spent that time in minutes in the direct care of this critically ill patient, excluding procedure time. ED Disposition Clinical Impression: Meng's palsy Disposition: 01 HOME / SELF CARE / HOMELESS Is pt being admited?: No Does the pt Need Aspirin: No Condition: Stable Instructions: Meng Palsy, Adult Additional Instructions: Return to the emergency department should you develop worsening symptoms, inability to tolerate food or liquids, high fever or any other concerns Prescriptions: Dextran 70/Hypromellose [Artificial Tears] 2 drop OD PRN #15 ml predniSONE [Deltasone] 60 mg PO QDAY #21 tab Referrals: PRIMARY CAREMD [Primary Care Provider] - 3-5 Days HORACIO RODRIGUEZ MD [Staff Physician] - 3-5 Days (Dr. Rodriguez is a neurologist. Please follow-up with him for further evaluation) Time of Disposition: 22:53
[2021-05-04 21:32] LABS: Basophils % (Auto) 0.6 % (0.0-1.8); Eosinophils # (Auto) 0.1 K/mm3 (0.0-0.4); Hematocrit 49.7 % (35.5-45.6); Hemoglobin 15.6 gm/dl (11.8-15.2); Lymphocytes # (Auto) 1.2 K/mm3 (1.2-5.4); Lymphocytes % (Auto) 27.5 % (13.4-35.0); Mean Corpuscular HGB Conc 32 % (32-34); Mean Corpuscular Volume 85 fl (84-94); Monocytes # (Auto) 0.4 K/mm3 (0.0-0.8); Platelet Count 200 K/mm3 (140-440); Red Blood Count 5.86 M/mm3 (3.65-5.03); Red Cell Distribution Width 15.3 % (13.2-15.2)
[2021-05-04 21:42] LABS: INR 0.94 (0.87-1.13)
--- NOTE | 2021-05-04 21:42 | Cat Scan Report ---
CT HEAD WITHOUT CONTRAST INDICATION / CLINICAL INFORMATION: cva. TECHNIQUE: All CT scans at this location are performed using CT dose reduction for ALARA by means of automated e xposure control. COMPARISON: Head CT 08/06/2019 FINDINGS: HEMORRHAGE: No evidence of intracranial hemorrhage or extra-axial fluid collection. EXTRA-AXIAL SPACES: Cortical sulci and sylvian fissures are mildly enlarged reflecting a degree of pa renchymal volume loss which is within normal limits for the patient's age of 75 years. Basilar cister ns have an unremarkable appearance. VENTRICULAR SYSTEM: The third and lateral ventricles are enlarged reflecting presence of age related parenchymal volume loss. CEREBRAL PARENCHYMA: Periventricular and deep white matter lucency is observed. This is probably seco ndary to microvascular ischemic change. There is no indication of recent infarction. No areas of ence phalomalacia are identified. MIDLINE SHIFT OR HERNIATION: There is no mass effect. CEREBELLUM / BRAINSTEM: Brainstem has an unremarkable appearance. Age related cerebellar atrophy is n oted. MIDLINE STRUCTURES:Pituitary gland has an unremarkable appearance. No abnormalities are seen in the p ineal region. INTRACRANIAL VESSELS:Calcified atherosclerotic plaque is present along the course of the cavernous se gments of both internal carotid arteries. Similar findings are seen at the distal vertebral arteries. CRANIOCERVICAL JUNCTION: Patient is status post fusion from the posterior occiput down through C3. ORBITS: visualized portions of the orbits have an unremarkable appearance. SOFT TISSUES of HEAD: No significant abnormality. CALVARIUM: Evaluation of bone windows reveals no abnormalities. PARANASAL SINUSES / MASTOID AIR CELLS: Paranasal sinuses are free from inflammatory mucosal disease. Mastoid air cells are normally pneumatized. ADDITIONAL FINDINGS: None. IMPRESSION: 1. Age-related involutional changes of parenchymal volume loss and microvascular ischemia. 2. No acute intracranial abnormality. No significant interval change compared to prior study. 3. Status post posterior fusion at the craniocervical junction. Signer Name: Oumar Olvera MD Signed: 05/04/2021 9:37 PM Workstation Name: [id number]
[2021-05-04 21:43] LABS: Partial Thromboplastin Time 30.6 Sec. (24.2-36.6); Thrombin Time 17.4 Sec. (15.1-19.6)
[2021-05-04 21:47] LABS: Alanine Aminotransferase 32 units/L (7-56); Albumin 4.6 g/dL (3.9-5); BUN/Creatinine Ratio 13; Blood Urea Nitrogen 10 mg/dL (9-20); Calcium 9.8 mg/dL (8.4-10.2); Hemolysis Index 27
--- NOTE | 2021-05-04 21:51 | Consultation ---
Medications and Allergies Allergies Allergy/AdvReac Type Severity Reaction Status Date / Time No Known Allergies Allergy Verified 05/04/21 21:15 Home Medications Medication Instructions Recorded Confirmed Last Taken Type Metformin HCl [Fortamet ER] 1,000 mg PO BID 10/27/13 05/21/18 05/20/18 History amLODIPine [Norvasc] 5 mg PO DAILY 10/27/13 05/21/18 05/20/18 History Lovastatin [Altoprev] 20 mg PO QHS 05/31/16 05/20/18 06/06/16 21:00 History glipiZIDE [Glucotrol] 10 mg PO BID 05/31/16 05/20/18 06/07/16 04:30 History Jardiance 1 tab PO DAILY 05/20/18 05/21/18 05/20/18 History Lisinopril 1 tab PO DAILY 05/20/18 05/21/18 05/20/18 History Metoprolol Tartrate 1 tab PO DAILY 05/20/18 05/21/18 05/20/18 History HYDROcodone/APAP 5-325 [[place] 1 each PO Q6HR PRN #12 tablet 04/12/19 Unknown Rx 5/325] Ibuprofen [Motrin] 800 mg PO Q8HR PRN #24 tablet 04/12/19 Unknown Rx cephALEXin [Keflex] 500 mg PO Q6HR #40 capsule 04/12/19 Unknown Rx Results - Laboratory Findings CBC and BMP: 05/04/21 21:25 05/04/21 21:25 Abnormal Lab Findings: Abnormal Labs 05/04/21 05/04/21 05/04/21 21:13 21:25 21:25 WBC 4.2 L RBC 5.86 H Hgb 15.6 H Hct 49.7 H MCH 27 L RDW 15.3 H [place] % (Auto) 9.0 H Carbon Dioxide 20 L Glucose 271 H POC Glucose 233 H Assessment and Plan [facility] Consult Note # Demographics Consult Type: Acute Stroke Level 1 (0-4.5 hrs) Patient Location: Emergency Room First Name: Eber Last Name: Jonathan Date of : 12/21/1946 Age: 74 Gender: Male Facility: [facility] Time of Initial Page (Eastern Time): 05/04/2021, 21:18 Time of Return Call (Eastern Time): 05/04/2021, 21:18 # HPI History: 74M with 17:00 onset, prior colon cancer. He reports having ear ache, then noted pain behind right head/ear. # Scores Time of exam and NIHSS (): 05/04/2021, 21:31 Level of Consciousness 1a: [0] = Alert; keenly responsive LOC Questions 1b: [0] = Answers both questions correctly LOC Commands 1c: [0] = Performs both tasks correctly Best Gaze 2: [0] = Normal Visual 3: [0] = No visual loss Facial Palsy 4: [2] = Partial paralysis Motor Arm Left 5a: [0] = No drift Motor Arm Right 5b: [0] = No drift Motor Leg Left 6a: [0] = No drift Motor Leg Right 6b: [0] = No drift Limb Ataxia 7: [0] = Absent Sensory 8: [0] = Normal Best Language 9: [0] = No aphasia Dysarthria 10: [0] = Normal Extinction and Inattention 11: [0] = No abnormality NIHSS Total: 2 # Exam Additional Neurologic Exam: eye closure weakness on right. # H-FH-SH Past Medical History: Diabetes Medications: diabetic medication # Assessment Impression: Anita Palsy on right. # Plan Thrombolytic/Intervention: NOT IV Thrombolysis or IA Intervention candidate Thrombolytic Exclusion: risk Additional Recommendations: Prednisone 60mg daily x 7d unless not tolerated due to DM, eye care to prevent corneal injury. Disposition: discharge # Logistics Telemedicine: Interactive 2 way audio and visual telecommunication technology was utilized during this visit
--- NOTE | 2021-05-04 22:03 | XRay Report ---
CHEST 1 VIEW 05/04/2021 9:25 PM INDICATION / CLINICAL INFORMATION: weakness. COMPARISON: None available. FINDINGS: SUPPORT DEVICES: Right chest wall medical port with the tip at the cavoatrial junction. HEART / MEDIASTINUM: No significant abnormality. LUNGS / PLEURA: Mild perihilar streaky airspace opacities with pulmonary vascular indistinctness. No focal consolidation or pleural effusion. No pneumothorax. ADDITIONAL FINDINGS: No significant additional findings. IMPRESSION: 1. Findings suggesting mild pulmonary edema. Signer Name: Ming Bean DO Signed: 05/04/2021 9:58 PM Workstation Name: [id number]
[2021-05-05 00:21] VITALS: BP 138/90
--- NOTE | 2021-05-05 08:51 | Electrocardiograph Report ---
[facility] Test Date: 2021-05-04 Test Time: 22:08:59 Pat Name: ION ARZATE Department: Room: Gender: M Superintendent Tests: REVA : 1945 Requested By: JHON RAGLAND Order Number: [id number] Reading MD: Dean Jc Measurements Intervals [place] Rate: 84 P: 63 SD: 189 QRS: 25 QRSD: 80 T: -13 QT: 347 QTc: 411 Interpretive Statements Sinus arrhythmia Atrial premature complex No previous ECG available for comparison Electronically Signed On 05-05-2021 8:50:57 EST by Dean Jc
== END 2021-05-05 00:28 | disposition home or self-care (01) ==
LOC: ED 21:11
DX: G51.0 Bell's palsy (principal); I10 Essential (primary) hypertension; E11.9 Type 2 diabetes mellitus without complications; Z98.890 Other specified postprocedural states
CPT/HCPCS: 36415; 70450; 71045; 80053; 82805; 82962; 84484; 85025; 85610; 85670; 85730; 93005; 93010; 99284